=== PATIENT | female | born 1995 | race Asian ===

== ENCOUNTER 2019-02-22 08:18 | Emergency (ER) | payer BC ==
[~2019-02-22] VITALS: Ht 162.6 cm; Wt 54.4 kg
[2019-02-22 08:18] VITALS: BP_SYST 134
[2019-02-22] MEDS ORDERED: fentaNYL CITRATE/PF 100 MCG/2 ML AMP IVP ONE (08:45)
[2019-02-22] MEDS ORDERED: KETOROLAC TROMETHAMINE 30 MG VIAL IVP ONE (08:45)
[2019-02-22] MEDS ORDERED: DIAZEPAM 10 MG/2 ML DISP.SYRIN IVP ONE (11:15)
[2019-02-22] MEDS ORDERED: LORazepam 2 MG/ML VIAL (FOR ER USE) IVP ONE (12:00)
[2019-02-22 12:50] VITALS: BP_SYST 122
== END 2019-02-22 12:50 | disposition home or self-care (01) ==
LOC: SED 08:18
DX: M54.5 Low back pain (principal)
CPT/HCPCS: 72100; 81025; 96374; 96375; 99283; J1885; J2060; J3010